=== PATIENT | male | born 1995 | race Asian ===

== ENCOUNTER 2018-11-02 16:46 | Emergency (ER) | payer MEDICAID ==
[~2018-11-02] VITALS: Ht 177.8 cm; Wt 99.8 kg
[2018-11-02 16:55] VITALS: Ht 177.8 cm; Wt 99.8 kg
[2018-11-02 18:01] LABS: PLATELET COUNT 326 x10^3mcL (130-400); RED CELL DISTRIBUTION WIDTH 12.4 % (11.5-14.5)
[2018-11-02 18:03] LABS: BASOPHIL % 0 % (0-2)
[2018-11-02 18:12] LABS: CALCIUM 9.6 mg/dL (8.5-10.1); CARBON DIOXIDE 24.8 mmol/L (21-32); CHLORIDE SERUM 102 mmol/L (98-107); CREATININE SERUM 1.2 mg/dL (0.7-1.3); GFR1 > 60 mL/min; GLUCOSE SERUM 114 mg/dL (74-106); POTASSIUM SERUM 3.9 mmol/L (3.5-5.1); SODIUM SERUM 140 mmol/L (136-145)
[2018-11-02 18:16] LABS: ALBUMIN 4.4 g/dL (3.4-5.0); ALKALINE PHOSPHATASE 96 U/L (46-116); ALT/SGPT 42 U/L (16-63); AMYLASE 55 U/L (25-115); AST/SGOT 17 U/L (15-37); BILIRUBIN TOTAL 1.15 mg/dL (0.20-1.00); LIPASE 72 IU/L (73-393)
[2018-11-02 18:17] LABS: TOTAL PROTEIN, SERUM 8.6 g/dL (6.4-8.2)
[2018-11-02 20:01] VITALS: BP 455/80
== END 2018-11-02 20:01 | disposition home or self-care (01) ==
LOC: ED 16:46
PROVIDERS: Emergency Medicine
DX: K52.9 Noninfective gastroenteritis and colitis, unspecified (principal); R06.4 Hyperventilation; J45.909 Unspecified asthma, uncomplicated; Z88.0 Allergy status to penicillin
CPT/HCPCS: J1885; J2060; J2405

== ENCOUNTER → 2019-06-16 | Outpatient (CLI) | payer MEDICAID | END | disposition home or self-care (01) | LOC: RD 14:53 | DX: R05 Cough (principal); R07.9 Chest pain, unspecified ==

== ENCOUNTER 2019-06-17 21:29 | Emergency (ER) | payer MEDICAID ==
[~2019-06-17] VITALS: Ht 175.3 cm; Wt 81.6 kg
[2019-06-17 21:31] VITALS: Ht 175.3 cm; Wt 81.6 kg
[2019-06-17 22:38] VITALS: BP 112/73
== END 2019-06-17 22:38 | disposition home or self-care (01) ==
LOC: ED 21:29
DX: F41.9 Anxiety disorder, unspecified (principal); R07.89 Other chest pain; J45.909 Unspecified asthma, uncomplicated; Z88.0 Allergy status to penicillin
CPT/HCPCS: J2060; Q0092

== ENCOUNTER 2019-07-18 09:14 | Emergency (ER) | payer MEDICAID ==
[~2019-07-18] VITALS: Ht 177.8 cm; Wt 101.6 kg
[2019-07-18 09:23] VITALS: Ht 177.8 cm; Wt 101.6 kg
[2019-07-18 12:23] LABS: BASOPHIL % 0.3 % (0-2); PLATELET COUNT 291 x10^3mcL (130-400); RED CELL DISTRIBUTION WIDTH 13.1 % (11.5-14.5)
[2019-07-18 14:17] VITALS: BP 107/62
== END 2019-07-18 14:17 | disposition home or self-care (01) ==
LOC: ED 09:14
DX: K51.90 Ulcerative colitis, unspecified, without complications (principal); J45.909 Unspecified asthma, uncomplicated; Z88.0 Allergy status to penicillin
CPT/HCPCS: J1100; J2270; J2405; J7030

== ENCOUNTER 2019-07-31 18:37 | Emergency (ER) | payer OTHER ==
[~2019-07-31] VITALS: Ht 177.8 cm; Wt 103.0 kg
[2019-07-31 18:39] VITALS: Ht 177.8 cm; Wt 103.0 kg
[2019-07-31 20:16] LABS: BASOPHIL % 0.4 % (0-2); PLATELET COUNT 271 x10^3mcL (130-400); RED CELL DISTRIBUTION WIDTH 13.5 % (11.5-14.5)
[2019-07-31 20:28] LABS: CALCIUM 8.4 mg/dL (8.5-10.1); CARBON DIOXIDE 24.1 mmol/L (21-32); CHLORIDE SERUM 102 mmol/L (98-107); GFR1 > 60 mL/min; GLUCOSE SERUM 83 mg/dL (74-106); POTASSIUM SERUM 3.5 mmol/L (3.5-5.1); SODIUM SERUM 138 mmol/L (136-145)
[2019-07-31 20:33] LABS: ALBUMIN 3.4 g/dL (3.4-5.0); ALKALINE PHOSPHATASE 83 U/L (46-116); ALT/SGPT 38 U/L (16-63); AST/SGOT 20 U/L (15-37); LIPASE 122 IU/L (73-393); TOTAL PROTEIN, SERUM 7.2 g/dL (6.4-8.2)
[2019-07-31 22:15] VITALS: BP 118/62
== END 2019-07-31 22:15 | disposition home or self-care (01) ==
LOC: ED 18:37
PROVIDERS: Emergency Medicine
DX: R10.32 Left lower quadrant pain (principal); R19.7 Diarrhea, unspecified; J45.909 Unspecified asthma, uncomplicated; Z88.0 Allergy status to penicillin
CPT/HCPCS: J2405; J2930; J3010; J7030; Q0092

== ENCOUNTER 2020-08-14 02:12 | Emergency (ER) | payer OTHER ==
[~2020-08-14] VITALS: Ht 177.8 cm; Wt 125.0 kg
[2020-08-14 02:23] VITALS: Ht 177.8 cm; Wt 125.0 kg
[2020-08-14 04:03] LABS: BASOPHIL % 0.3 % (0-2); PLATELET COUNT 311 x10^3mcL (130-400); RED CELL DISTRIBUTION WIDTH 11.9 % (11.5-14.5)
[2020-08-14 04:06] LABS: CALCIUM 8.7 mg/dL (8.5-10.1); CHLORIDE SERUM 103 mmol/L (98-107); CREATININE SERUM 1.2 mg/dL (0.7-1.3); GFR1 > 60 mL/min; GLUCOSE SERUM 84 mg/dL (74-106); POTASSIUM SERUM 3.7 mmol/L (3.5-5.1); SODIUM SERUM 138 mmol/L (136-145)
[2020-08-14 04:11] LABS: ALBUMIN 3.5 g/dL (3.4-5.0); ALKALINE PHOSPHATASE 83 U/L (46-116); ALT/SGPT 60 U/L (16-63); AST/SGOT 25 U/L (15-37); BILIRUBIN TOTAL 0.43 mg/dL (0.20-1.00); TOTAL PROTEIN, SERUM 7.6 g/dL (6.4-8.2)
[2020-08-14 06:01] VITALS: BP 123/73
== END 2020-08-14 05:12 | disposition home or self-care (01) ==
LOC: ED 02:12
PROVIDERS: Emergency Medicine
DX: R07.89 Other chest pain (principal); J45.909 Unspecified asthma, uncomplicated; Z88.0 Allergy status to penicillin
CPT/HCPCS: J1885; Q0092